=== PATIENT | female | born 1960 | race Caucasian/White ===

== ENCOUNTER 2016-09-09 07:36 | Day surgery (SDC) | payer OTHER, BC ==
[~2016-09-09] VITALS: Ht 152.4 cm; Wt 47.0 kg
[~2016-09-09 07:36] MED LIST: CALC667C4 PO; CEFAZOLIN 1000MG/55 ML D5W IV SCH; D5W AND 1/4NSS 1,000 ML IV SCH; DORZ1SOL6 OPB; INSPMPNVLG; LEVO200T6 PO; METO25TA3 PO; OXYC-57 PO; PATIENT'S ALLERGY INFO NEEDS ENTERED SCH; PATIENT'S HEIGHT AND/OR WEIGHT NEEDED SCH; PRAV20TA PO; WARF1TAB6 PO
[2016-09-09 07:58] VITALS: BP 131/62; PULSE 71; TEMP 36.8; O2SAT 100; Ht 152.4 cm; Wt 47.0 kg
--- NOTE | 2016-09-09 08:07 | History and Physical ---
History & Physical Date of Service Sep 09, 2016. History & Physical End stage renal disease, malfunctioning fistula History of Present Illness The patient is a 55 year old female who had a right upper arm fistula created. The cephalic vein in the upper extremity did not mature and flow into the basilic does not appear adequate. She had a revision but still has poor flows. The patient has a history of coronary artery disease, hypertension and diabetes. Allergies Amiodarone (Verified Allergy, Severe, significant skin breakdown, 12/13/15) Home Medications Scheduled Carvedilol (Coreg), 12.5 MG PO BID Dorzolamide Hcl-Timolol Maleat (Cosopt Oph), 1 DROP OPB BID Hydralazine Hcl (Apresoline), 25 MG PO TID Insulin Aspart (novoLOG INSULIN PUMP ), 1 EA N/A UD Levothyroxine Sodium (Levothyroxine Sodium), 1 TAB PO QAM Levothyroxine Sodium (Levothyroxine Sodium), 1 TAB PO QAM Pravastatin Sodium (Pravastatin Sodium), 40 MG PO HS Warfarin Sod (Jantoven), 1 MG PO HS Problem List Medical Problems: (1) Cancer of right colon (2) Colorectal cancer, stage III (3) Coronary Atherosclerosis Of [place] Coronary Vessel (4) Diabetes (5) Hypertension Nos Surgical / Medical History Hx Cardiac Surgery: Yes (CARDIAC CATH- 1987/1999/2013-1 STENT) Hx Abdominal Surgery: Yes (BOWEL RESECTION) Hx Cancer Surgery: Yes (BOWEL RESECTION) Hx Thoracic Surgery: No Hx Orthopedic: No Hx Urinary Tract Surgery: Yes (L KIDNEY TRANSPLANT-1999) HX Other Surgery: Yes (A-PORT INSERTION RT CHEST, PERMACATH LEFT CHEST, THYROIDECTOMY, *) Family History No significant family history Social History Smoking Status: Never Smoker Hx Tobacco Use In Past Year?: No Hx Alcohol Use - Type & Amnt: No Hx Substance Use -Type & Amnt: No Review of Systems Constitutional: No chills, No diaphoresis, No fatigue, No fever, No malaise, No problem reported, No sweats, No weakness, No weight gain, No weight loss Respiratory: No STEWARD, No PND, No cough, No cyanosis, No dyspnea, No hemoptysis, No orthopnea, No problem reported, No short of breath, No sputum production, No stridor, No wheezing Cardiovascular: No chest pain, No chest pressure, No chest tightness, No cyanosis, No diaphoresis, No edema, No intermittent claudication, No lightheadedness, No mumur, No orthopnea, No palpitations, No paroxysmal nocturnal dyspnea, No problem reported, No syncope Gastrointestinal: No abdominal pain, No anorexia, No appetite changes, No belching, No constipation, No diarrhea, No dysphagia, No flatulence, No food intolerance, No heartburn, No hematemesis, No hematochezia, No hemorrhoids, No indigestion, No nausea, No problem reported, No rectal bleeding, No stool changes, No vomiting Genitourinary - Female: No breast problems, No dysmenorrhea, No dysuria, No hematuria, No hesitancy, No menorrhagia, No metrorrhagia, No , No problem reported, No rash, No urinary frequency, No urinary incontinence, No urinary retention, No urinary urgency, No vaginal bleeding, No vaginal discharge , No vaginal itching, No vulvadynia Musculoskeletal: No back pain, No gout, No joint pain, No joint swelling, No muscle pain, No muscle stiffness, No muscle weakness, No neck pain, No problem reported Neurologic: No LOC, No dizziness, No headache, No lethargy, No memory loss, No numbness, No paresthesia, No pre-existing deficit, No problem reported, No seizures, No tics, No tingling, No tremors, No vertigo, No weakness Psychiatric: No alcohol abuse, No anxiety, No auditory hallucinations, No depression, No drug abuse, No homicidal ideation, No mood changes, No problem reported, No suicidal ideation, No visual hallucinations Physical Exam Constitutional: General Apperance: cachectic Level of Distress: NAD Ambulation: ambulating normally Psychiatric: Mental Status: active & alert, normal mood, normal affect Orientation: oriented except where noted, to time, to place, to person Memory: recent memory normal, remote memory normal Neck: supple Lungs: Auscultation: breath sounds normal, CTA except as noted, no wheezing, no rales/crackles, no rhonchi Cardiovascular: Heart Auscultation: RRR Peripheral Pulses: Carotid Pulse: normal on the left, normal on the right Radial Pulse: normal on the left, normal on the right Femoral Pulse: normal on the left, normal on the right Abdomen: Inspection & Palpation: soft Musculoskeletal: normal, normal strength (5/5 throughout), normal tone Extremities: Upper Right: no cyanosis, no edema, no varicosities, no palpable cord, no clubbing, no ulcers, no mottling Upper Left: no cyanosis, no edema, no varicosities, no palpable cord, no clubbing, no ulcers, no mottling Lower Right: no cyanosis, no edema, no varicosities, no palpable cord, no clubbing, no ulcers, no mottling, small thrill in fistula Lower Left: no cyanosis, no edema, no varicosities, no palpable cord, no clubbing, no ulcers, no mottling Neurologic: Cranial Nerves: grossly intact Sensation: grossly intact Assessment and Plan Imp: End stage renal disease Malfunctioning of fistula Plan: Patient admitted for a fistulogram with possible intervention. I have discussed the risks options and benefits of the procedure with the patient. The patient understands the risks options and benefits and agrees to the procedure.
[2016-09-09 08:28] LABS: PARTIAL THROMBOPLASTIN RATIO 1.3; PROTHROMBIN TIME (PATIENT) 22.3 SECONDS (9.0-12.0)
[2016-09-09] MEDS ORDERED: MIDAZOLAM HCL 1 MG/ML 2ML VIAL ONE (10:49)
[2016-09-09] MEDS ORDERED: FENTANYL CITRATE INJ 50 MCG/1 ML 2 ML VIAL ONE (10:49)
--- NOTE | 2016-09-09 11:13 | Procedure Note ---
Pre-Mod Sedation Assessment General Date of Moderate Sedation: Sep 09, 2016. Vital Signs: Vital Signs Past 12 Hours Date Time Temp Pulse Resp B/P Pulse Ox O2 Delivery O2 Flow Rate FiO2 09/09/16 07:58 36.8 71 18 131/62 100 Room Air Pre-Sedation Airway Assessment Oral Cavity: WNL Smoking Status: Never Smoker Mallampati Classification: Class I ASA Classification: Class II Notes The planned sedation has been discussed with the patient and consent obtained. I have identified the patient, determined the appropriateness of sedation and have assessed the patient immediately prior to the procedure. All medicine(s) and interventions are by my order.
--- NOTE | 2016-09-09 11:13 | History & Physical Bridge Note ---
H&P Re-Evaluation Bridge Note: I have examined the patient, reviewed the History & Physical and in the interval since the performance of the History & Physical I have noted the following changes of clinical significance: No changes noted
[2016-09-09] MEDS ORDERED: LIDOCAINE HCL 1% 20 ML VIAL INJ ONE (11:30)
[2016-09-09] MEDS ORDERED: FENTANYL CITRATE INJ 50 MCG/1 ML 2 ML VIAL IV ONE (11:30)
[2016-09-09] MEDS ORDERED: OPTIRAY 300 IV ONE (11:44)
--- NOTE | 2016-09-09 11:47 | [facility] Post Operative Brief Note ---
Immediate Operative Summary Operative Date Sep 09, 2016. Pre-Operative Diagnosis malfunctioning fistula Post-Operative Diagnosis same Procedure(s) Performed Right Upper Extremity Fistulogram, Percutaneous Transluminal Angioplasty Peripheral Venous Surgeon Dr. Morales [facility] Crusher And Washer Surgeon(s) Dr. Edouard Estimated Blood Loss 3 ml Findings no residual stenosis Specimens none Anesthesia Local Complication(s) None Disposition
--- NOTE | 2016-09-09 11:48 | Discharge Instructions ---
Discharge Instructions Date of Service Sep 09, 2016. Visit Reason for Visit: End Stage Renal Disease -On Hemodialysis Discharge Discharge Diagnosis / Problem: Malfunctioning right arm fistula Discharge Goals Goal(s): Therapeutic intervention Activity Recommendations Activity Limitations: per Instructions/Follow-up section Anesthesia . Post Anesthesia Instructions: If you have had General Anesthesia or IV Sedation: * Do not drive today. * Resume driving when surgeon permits. * Do not make important decisions or sign legal documents today. * Call surgeon for: 1. Temperature elevations greater than 101 degrees F. 2. Uncontrollable pain. 3. Excessive bleeding. 4. Persistent nausea and vomiting. 5. Medication intolerance (nausea, vomiting or rash). * For nausea and vomiting use only clear liquids such as: tea, soda, bouillon until nausea subsides, then gradually increase diet as tolerated. * If you have any concerns or questions, call your surgeon's office. If physician is unavailable and it is an emergency, call 911 or go to the nearest emergency room. . Instructions / Follow-Up Instructions / Follow-Up Call [phone] with any questions or concerns. SPECIAL CARE INSTRUCTIONS: Medications: * Continue to take your medications as directed. If you have been given a prescription for Plavix, please fill it immediately and take as directed. Incision Care: * Your puncture site may have some bruising and minor swelling for about one week. * You will have a small dressing covering your puncture site. You may remove the dressing after 24 hours and shower. You may let the warm soapy water run over it, but be sure to dry the puncture site well and keep it dry. * DO NOT IMMERSE THE INCISION IN A TUB/POOL/etc. UNTIL HEALED. * Puncture sites should be kept covered with a band-aid until it begins to heal. Restrictions: * Depending on whether you leg or arm was punctured to access the arteries, you will be required to lay flat, hold your arm still, or both, for about 4 hours after the procedure to prevent bleeding. * Limit your activity for the first 48 hours. You may walk and go up and down steps. Avoid excessive bending or movement at the puncture site. Possible Complications: * Excessive Swelling - after blood flow is improved you may notice increased swelling in the lower legs. This is a normal response. This usually depends on the amount of blockages in the leg, how long they have been there prior to your procedure and how much blood flow was restored. Elevating your legs will help to improve this. Please notify our office ([phone] ) if the swelling does not go away after lying in bed overnight. * Infection/Drainage/Bleeding - Drainage or bleeding from the puncture site should be minimal. If you have excessive bleeding or drainage, call our office ([phone]) right away. * Pain - You may experience some mild pain or soreness at your puncture site. If your pain does not improve, please contact our office ([phone]). Call your doctor and seek emergent treatment if you develop: * Temperature above 101 degrees * Any fever or chills * Any redness or purulent drainage from the puncture site * Any new dusky/blue colored toes or feet with coolness or sharp or aching pain. SKIN IRRITATION: * You may experience some redness and/or swelling in the area where radiation was administered. If any skin irritation occurs, please contact your family physician. FOLLOW UP VISIT: Keep any scheduled doctor appointments. Diet Recommendations Recommended Home Diet: resume previous diet Procedures Procedures Performed: Right Upper Extremity Fistulogram, Percutaneous Transluminal Angioplasty Peripheral Venous Pending Studies Studies pending at discharge: no Medical Emergencies . Who to Call and When: Medical Emergencies: If at any time you feel your situation is an emergency, please call 911 immediately. . Non-Emergent Contact Non-Emergency issues call your: Surgeon . . "Provider Documentation" section prepared by Sarbjit Morales.
[2016-09-09 12:05] VITALS: BP 123/58; PULSE 68; TEMP 36.9; O2SAT 98
--- NOTE | 2016-09-09 12:22 | DIAGNOSTIC IMAGING REPORT ---
DATE OF PROCEDURE: 09/09/2016 PREOPERATIVE DIAGNOSIS: Malfunctioning right arm arteriovenous fistula. POSTOPERATIVE DIAGNOSIS: Same. PROCEDURE: Right upper extremity fistulogram and balloon angioplasty with a 6 mm balloon. SURGEON: Dr. Sarbjit Morales. THERAPEUTIC CONSULTANT: Dr. Orlin Edouard. ANESTHESIA: Local only. ESTIMATED BLOOD LOSS: 3 mL. INDICATIONS: This is a 56-year-old female with end-stage renal disease currently on dialysis. She previously underwent a right upper extremity brachiocephalic AV fistula. Unfortunately, this did not mature. Her cephalic vein occluded and she reconstituted basilic vein. Therefore, she recently underwent transition of her basilic vein onto her cephalic vein. She continues to have trouble dialyzing per the dialysis center. Fistulogram was indicated for ongoing malfunctioning of the AV fistula. PROCEDURE: The patient was brought to the endo procedure room and placed in supine position. A timeout was performed and all parties agreed to correct patient and procedure performed. The patient was placed in the supine position. Appropriate surgical antibiotics were administered within 1 hour of the incision. The fistula was accessed using a micropuncture needle. This was exchanged to a micropuncture sheath over a wire. Fistulogram was performed. This showed a moderate stenosis at what appeared to be the anastomosis between the cephalic and basilic vein. The rest of the veins including the central system all were widely patent. Of note, she has a port on the ipsilateral side and a tunneled dialysis catheter on the left side. We elected to treat this area of narrowing. The sheath was upsized to a 5-Italian sheath over a angled Glidewire. A 6 mm balloon was brought onto the field and the anastomosis was angioplastied. Angiogram at the completion of this showed good resolution of the stenosis. All sheath wires and catheters were removed. Pressure was held at the access site and hemostasis was achieved. The patient was transferred to recovery room in satisfactory condition. I was present and scurbbed for the entire procedure. [facility]
[2016-09-09 12:35] VITALS: BP 105/57; PULSE 65; O2SAT 98
[2016-12-30] MEDS ORDERED: OXYC-57 PO (11:15)
== END 2016-09-09 12:51 | disposition home or self-care (01) ==
LOC: C.ACU 07:36
PROVIDERS: ATTEND Surgery Vascular Surgery
DX: T82.858A Stenosis of other vascular prosthetic devices, implants and grafts, initial encounter (principal); Y83.2 Surgical operation with anastomosis, bypass or graft as the cause of abnormal reaction of the patient, or of later complication, without mention of misadventure at the time of the procedure; N18.6 End stage renal disease; R64 Cachexia; I12.0 Hypertensive chronic kidney disease with stage 5 chronic kidney disease or end stage renal disease; E11.9 Type 2 diabetes mellitus without complications; I25.10 Atherosclerotic heart disease of native coronary artery without angina pectoris; Z85.038 Personal history of other malignant neoplasm of large intestine; Z96.41 Presence of insulin pump (external) (internal)

== ENCOUNTER → 2016-11-25 | Day surgery (SDC) | payer OTHER, BC ==
[~2016-11-25] VITALS: Ht 152.4 cm; Wt 50.0 kg
[~2016-11-25] MED LIST changes: -CEFAZOLIN 1000MG/55 ML D5W IV SCH; -D5W AND 1/4NSS 1,000 ML IV SCH; +FENTANYL CITRATE INJ 50 MCG/1 ML 2 ML VIAL IV ONE; +FENTANYL CITRATE INJ 50 MCG/1 ML 2 ML VIAL ONE; +LIDOCAINE HCL 1% 20 ML VIAL INFIL ONE; +LIDOCAINE HCL 1% 20 ML VIAL ONE; +MIDAZOLAM HCL 1 MG/ML 2ML VIAL IV ONE; +MIDAZOLAM HCL 1 MG/ML 2ML VIAL ONE; +NURSING VERBAL MED ORDER ONE; -PATIENT'S ALLERGY INFO NEEDS ENTERED SCH; -PATIENT'S HEIGHT AND/OR WEIGHT NEEDED SCH; +SOD CHLOR IV SCH; +SODIUM CHLORIDE 0.45% 1000ML 1,000 ML IV SCH; +STERILE WATER IV SCH
[2016-11-25 06:48] VITALS: BP 143/64; PULSE 76; TEMP 36.8; O2SAT 100; Ht 152.4 cm; Wt 50.0 kg
[2016-11-25 07:21] LABS: INR 1.5 (0.9-1.1); PARTIAL THROMBOPLASTIN RATIO 1.2; PROTHROMBIN TIME (PATIENT) 16.7 SECONDS (9.0-12.0)
--- NOTE | 2016-11-25 08:00 | Procedure Note ---
Pre-Mod Sedation Assessment General Date of Moderate Sedation: November 25, 2016. Vital Signs: Vital Signs Past 12 Hours Date Time Temp Pulse Resp B/P Pulse Ox O2 Delivery O2 Flow Rate FiO2 11/25/16 06:48 36.8 76 18 143/64 100 Room Air Pre-Sedation Airway Assessment Oral Cavity: WNL Short Thick Neck: No Hx of Sleep Apnea: No Smoking Status: Never Smoker Mallampati Classification: Class I ASA Classification: Class II Notes The planned sedation has been discussed with the patient and consent obtained. I have identified the patient, determined the appropriateness of sedation and have assessed the patient immediately prior to the procedure. All medicine(s) and interventions are by my order.
--- NOTE | 2016-11-25 08:00 | History and Physical ---
History & Physical Date of Service November 25, 2016. History & Physical CC: End stage renal disease, functioning fistula History of Present Illness The patient is a 55 year old female who had a right upper arm fistula created. The cephalic vein in the upper extremity did not mature and flow into the basilic does not appear adequate. She had a revision. She now has a normal functioning fistula.. The patient has a history of coronary artery disease, hypertension and diabetes. Allergies Amiodarone (Verified Allergy, Severe, significant skin breakdown, 12/13/15) Home Medications Scheduled Carvedilol (Coreg), 12.5 MG PO BID Dorzolamide Hcl-Timolol Maleat (Cosopt Oph), 1 DROP OPB BID Hydralazine Hcl (Apresoline), 25 MG PO TID Insulin Aspart (novoLOG INSULIN PUMP ), 1 EA N/A UD Levothyroxine Sodium (Levothyroxine Sodium), 1 TAB PO QAM Levothyroxine Sodium (Levothyroxine Sodium), 1 TAB PO QAM Pravastatin Sodium (Pravastatin Sodium), 40 MG PO HS Warfarin Sod (Jantoven), 1 MG PO HS Problem List Medical Problems: (1) Cancer of right colon (2) Colorectal cancer, stage III (3) Coronary Atherosclerosis Of [place] Coronary Vessel (4) Diabetes (5) Hypertension Nos Surgical / Medical History Hx Cardiac Surgery: Yes (CARDIAC CATH- 1987/1999/2013-1 STENT) Hx Abdominal Surgery: Yes (BOWEL RESECTION) Hx Cancer Surgery: Yes (BOWEL RESECTION) Hx Thoracic Surgery: No Hx Orthopedic: No Hx Urinary Tract Surgery: Yes (L KIDNEY TRANSPLANT-1999) HX Other Surgery: Yes (A-PORT INSERTION RT CHEST, PERMACATH LEFT CHEST, THYROIDECTOMY, *) Family History No significant family history Social History Smoking Status: Never Smoker Hx Tobacco Use In Past Year?: No Hx Alcohol Use - Type & Amnt: No Hx Substance Use -Type & Amnt: No Review of Systems Constitutional: No chills, No diaphoresis, No fatigue, No fever, No malaise, No problem reported, No sweats, No weakness, No weight gain, No weight loss Respiratory: No STEWARD, No PND, No cough, No cyanosis, No dyspnea, No hemoptysis, No orthopnea, No problem reported, No short of breath, No sputum production, No stridor, No wheezing Cardiovascular: No chest pain, No chest pressure, No chest tightness, No cyanosis, No diaphoresis, No edema, No intermittent claudication, No lightheadedness, No mumur, No orthopnea, No palpitations, No paroxysmal nocturnal dyspnea, No problem reported, No syncope Gastrointestinal: No abdominal pain, No anorexia, No appetite changes, No belching, No constipation, No diarrhea, No dysphagia, No flatulence, No food intolerance, No heartburn, No hematemesis, No hematochezia, No hemorrhoids, No indigestion, No nausea, No problem reported, No rectal bleeding, No stool changes, No vomiting Genitourinary - Female: No breast problems, No dysmenorrhea, No dysuria, No hematuria, No hesitancy, No menorrhagia, No metrorrhagia, No , No problem reported, No rash, No urinary frequency, No urinary incontinence, No urinary retention, No urinary urgency, No vaginal bleeding, No vaginal discharge , No vaginal itching, No vulvadynia Musculoskeletal: No back pain, No gout, No joint pain, No joint swelling, No muscle pain, No muscle stiffness, No muscle weakness, No neck pain, No problem reported Neurologic: No LOC, No dizziness, No headache, No lethargy, No memory loss, No numbness, No paresthesia, No pre-existing deficit, No problem reported, No seizures, No tics, No tingling, No tremors, No vertigo, No weakness Psychiatric: No alcohol abuse, No anxiety, No auditory hallucinations, No depression, No drug abuse, No homicidal ideation, No mood changes, No problem reported, No suicidal ideation, No visual hallucinations Physical Exam Constitutional: General Apperance: cachectic Level of Distress: NAD Ambulation: ambulating normally Psychiatric: Mental Status: active & alert, normal mood, normal affect Orientation: oriented except where noted, to time, to place, to person Memory: recent memory normal, remote memory normal Neck: supple Lungs: Auscultation: breath sounds normal, CTA except as noted, no wheezing, no rales/crackles, no rhonchi Cardiovascular: Heart Auscultation: RRR Peripheral Pulses: Carotid Pulse: normal on the left, normal on the right Radial Pulse: normal on the left, normal on the right Femoral Pulse: normal on the left, normal on the right Abdomen: Inspection & Palpation: soft Musculoskeletal: normal, normal strength (5/5 throughout), normal tone Extremities: Upper Right: no cyanosis, no edema, no varicosities, no palpable cord, no clubbing, no ulcers, no mottling Upper Left: no cyanosis, no edema, no varicosities, no palpable cord, no clubbing, no ulcers, no mottling Lower Right: no cyanosis, no edema, no varicosities, no palpable cord, no clubbing, no ulcers, no mottling, thrill in fistula Lower Left: no cyanosis, no edema, no varicosities, no palpable cord, no clubbing, no ulcers, no mottling Neurologic: Cranial Nerves: grossly intact Sensation: grossly intact Assessment and Plan Imp: End stage renal disease Functioning of fistula Plan: Patient admitted for removal of her permcath. I have discussed the risks options and benefits of the procedure with the patient. The patient understands the risks options and benefits and agrees to the procedure.
--- NOTE | 2016-11-25 08:50 | [facility] Post Operative Brief Note ---
Immediate Operative Summary Operative Date November 25, 2016. Pre-Operative Diagnosis End stage renal disease Functioning of fistula Post-Operative Diagnosis Same Procedure(s) Performed Perm Cath Removal Moderate Sedation ([id number]) Surgeon Andrew Cementer Helper Surgeon(s) None Estimated Blood Loss 3 Findings catheter and cuff removed Specimens a; Perm Cath Anesthesia Local with conscious sedation Complication(s) None Disposition
--- NOTE | 2016-11-25 08:52 | Discharge Instructions ---
Discharge Instructions Date of Service November 25, 2016. Visit Reason for Visit: End Stage Renal Disease, Functioning Fistula Discharge Discharge Diagnosis / Problem: Functioniong fistula Discharge Goals Goal(s): Therapeutic intervention Activity Recommendations Activity Limitations: resume your previous activity Anesthesia . Post Anesthesia Instructions: If you have had General Anesthesia or IV Sedation: * Do not drive today. * Resume driving when surgeon permits. * Do not make important decisions or sign legal documents today. * Call surgeon for: 1. Temperature elevations greater than 101 degrees F. 2. Uncontrollable pain. 3. Excessive bleeding. 4. Persistent nausea and vomiting. 5. Medication intolerance (nausea, vomiting or rash). * For nausea and vomiting use only clear liquids such as: tea, soda, bouillon until nausea subsides, then gradually increase diet as tolerated. * If you have any concerns or questions, call your surgeon's office. If physician is unavailable and it is an emergency, call 911 or go to the nearest emergency room. . Instructions / Follow-Up Instructions / Follow-Up Call [phone] with any questions or concerns. SPECIAL CARE INSTRUCTIONS: Medications: * Continue to take your medications as directed. If you have been given a prescription for Plavix, please fill it immediately and take as directed. Incision Care: * Your puncture site may have some bruising and minor swelling for about one week. * You will have a small dressing covering your puncture site. You may remove the dressing after 24 hours and shower. You may let the warm soapy water run over it, but be sure to dry the puncture site well and keep it dry. * DO NOT IMMERSE THE INCISION IN A TUB/POOL/etc. UNTIL HEALED. * Puncture sites should be kept covered with a band-aid until it begins to heal. Restrictions: * Depending on whether you leg or arm was punctured to access the arteries, you will be required to lay flat, hold your arm still, or both, for about 4 hours after the procedure to prevent bleeding. * Limit your activity for the first 48 hours. You may walk and go up and down steps. Avoid excessive bending or movement at the puncture site. Possible Complications: * Excessive Swelling - after blood flow is improved you may notice increased swelling in the lower legs. This is a normal response. This usually depends on the amount of blockages in the leg, how long they have been there prior to your procedure and how much blood flow was restored. Elevating your legs will help to improve this. Please notify our office ([phone] ) if the swelling does not go away after lying in bed overnight. * Infection/Drainage/Bleeding - Drainage or bleeding from the puncture site should be minimal. If you have excessive bleeding or drainage, call our office ([phone]) right away. * Pain - You may experience some mild pain or soreness at your puncture site. If your pain does not improve, please contact our office ([phone]). Call your doctor and seek emergent treatment if you develop: * Temperature above 101 degrees * Any fever or chills * Any redness or purulent drainage from the puncture site * Any new dusky/blue colored toes or feet with coolness or sharp or aching pain. SKIN IRRITATION: * You may experience some redness and/or swelling in the area where radiation was administered. If any skin irritation occurs, please contact your family physician. FOLLOW UP VISIT: Keep any scheduled doctor appointments. Diet Recommendations Recommended Home Diet: resume previous diet Procedures Procedures Performed: Perm Cath Removal Moderate Sedation ([id number]) Pending Studies Studies pending at discharge: no Medical Emergencies . Who to Call and When: Medical Emergencies: If at any time you feel your situation is an emergency, please call 911 immediately. . Non-Emergent Contact Non-Emergency issues call your: Surgeon . . "Provider Documentation" section prepared by Sarbjit Morales. .
--- NOTE | 2016-11-25 08:52 | Procedure Note ---
Post-Moderate Sedation Plan General Date of Moderate Sedation November 25, 2016. Vital Signs: Vital Signs Past 12 Hours Date Time Temp Pulse Resp B/P Pulse Ox O2 Delivery O2 Flow Rate FiO2 11/25/16 08:49 80 18 107/47 100 Room Air 11/25/16 06:48 36.8 76 18 143/64 100 Room Air Review - Discharge Plan Post Moderate Sedation Plan: On clinical assessment, the patient appears to have tolerated the conscious sedation without complications. Patient is recovering as anticipated. Patient will continue to be monitored by nursing and may be discharged when conscious sedation discharge criteria are met.
[2016-11-25 09:06] VITALS: BP 110/51; PULSE 84; TEMP 36.9; O2SAT 97
[2016-11-25 09:27] VITALS: BP 100/58; PULSE 82; TEMP 36.9; O2SAT 97
--- NOTE | 2016-12-22 12:39 | DIAGNOSTIC IMAGING REPORT ---
DATE OF PROCEDURE: 11/25/2016 DATE OF PROCEDURE: 11/25/2016. PREOPERATIVE DIAGNOSIS: Functioning arteriovenous fistula. POSTOPERATIVE DIAGNOSIS: Same. PROCEDURES: 1. Removal of PermCath. 2. Moderate conscious sedation. 14 minutes Surgeon: Alysia Morales MD Anesthestic: Local PROCEDURE INDICATIONS: The patient is a 56-year-old female who has a functioning fistula now in place. She has elected to remove the PermCath. It has been in for an extended period of time. The patient was taken to the angio suite and placed in supine position. After the left side of the neck, chest wall and PermCath were prepped and draped in a sterile manner, local anesthetic was administered. Using blunt and sharp dissection the catheter was freed up from the surrounding tissue. The sheath around the cuff was incised using the scalpel. Once this was done, the catheter slid out easily. Pressure was then applied to the puncture site in the neck. Once adequate hemostasis was obtained, a sterile dressing was applied. The patient left the angio suite in good condition and tolerated the procedure well. ZAYRA
== END | disposition home or self-care (01) ==
LOC: C.ACU 06:29
PROVIDERS: ATTEND Surgery Vascular Surgery
DX: N18.6 End stage renal disease (principal); I25.10 Atherosclerotic heart disease of native coronary artery without angina pectoris; I10 Essential (primary) hypertension; E11.9 Type 2 diabetes mellitus without complications

== ENCOUNTER → 2016-12-30 | Day surgery (SDC) | payer OTHER, BC ==
[~2016-12-30] VITALS: Ht 152.4 cm; Wt 48.0 kg
[~2016-12-30] MED LIST changes: +BUPIVACAINE 0.5 % 5 MG/1 ML MPF 30ML VIAL ONE; +BUPIVACAINE/EPINEPHRINE 0.5% MPF 1:200,000 30 ML VIAL INFIL ONE; +BUPIVACAINE/EPINEPHRINE 0.5% MPF 1:200,000 30 ML VIAL ONE; +CEFAZOLIN 1000MG/55 ML D5W IV SCH; +D5W AND 1/4NSS 1,000 ML IV ONE; -LIDOCAINE HCL 1% 20 ML VIAL INFIL ONE; +LIDOCAINE HCL 1% 20 ML VIAL SQ ONE; -NURSING VERBAL MED ORDER ONE; -SOD CHLOR IV SCH; -SODIUM CHLORIDE 0.45% 1000ML 1,000 ML IV SCH; -STERILE WATER IV SCH
--- NOTE | 2016-12-30 06:07 | History and Physical ---
History & Physical Date of Service Dec 30, 2016. History & Physical History & Physical CC: End stage renal disease, malpositioned infusaport History of Present Illness The patient is a 55 year old female who had an infusaport placed in Jul. During an ablation last week it was noted that the tip has migrated into the right atrium. She is admitted for repositioning of the catheter. The patient has a history of coronary artery disease, hypertension and diabetes. Allergies Amiodarone (Verified Allergy, Severe, significant skin breakdown, 12/13/15) Home Medications Scheduled Carvedilol (Coreg), 12.5 MG PO BID Dorzolamide Hcl-Timolol Maleat (Cosopt Oph), 1 DROP OPB BID Hydralazine Hcl (Apresoline), 25 MG PO TID Insulin Aspart (novoLOG INSULIN PUMP ), 1 EA N/A UD Levothyroxine Sodium (Levothyroxine Sodium), 1 TAB PO QAM Levothyroxine Sodium (Levothyroxine Sodium), 1 TAB PO QAM Pravastatin Sodium (Pravastatin Sodium), 40 MG PO HS Warfarin Sod (Jantoven), 1 MG PO HS Problem List Medical Problems: (1) Cancer of right colon (2) Colorectal cancer, stage III (3) Coronary Atherosclerosis Of [place] Coronary Vessel (4) Diabetes (5) Hypertension Nos Surgical / Medical History Hx Cardiac Surgery: Yes (CARDIAC CATH- /2013-1 STENT) Hx Abdominal Surgery: Yes (BOWEL RESECTION) Hx Cancer Surgery: Yes (BOWEL RESECTION) Hx Thoracic Surgery: No Hx Orthopedic: No Hx Urinary Tract Surgery: Yes (L KIDNEY TRANSPLANT-1999) HX Other Surgery: Yes (A-PORT INSERTION RT CHEST, PERMACATH LEFT CHEST, THYROIDECTOMY, *) Family History No significant family history Social History Smoking Status: Never Smoker Hx Tobacco Use In Past Year?: No Hx Alcohol Use - Type & Amnt: No Hx Substance Use -Type & Amnt: No Review of Systems Constitutional: No chills, No diaphoresis, No fatigue, No fever, No malaise, No problem reported, No sweats, No weakness, No weight gain, No weight loss Respiratory: No STEWARD, No PND, No cough, No cyanosis, No dyspnea, No hemoptysis, No orthopnea, No problem reported, No short of breath, No sputum production, No stridor, No wheezing Cardiovascular: No chest pain, No chest pressure, No chest tightness, No cyanosis, No diaphoresis, No edema, No intermittent claudication, No lightheadedness, No mumur, No orthopnea, No palpitations, No paroxysmal nocturnal dyspnea, No problem reported, No syncope Gastrointestinal: No abdominal pain, No anorexia, No appetite changes, No belching, No constipation, No diarrhea, No dysphagia, No flatulence, No food intolerance, No heartburn, No hematemesis, No hematochezia, No hemorrhoids, No indigestion, No nausea, No problem reported, No rectal bleeding, No stool changes, No vomiting Genitourinary - Female: No breast problems, No dysmenorrhea, No dysuria, No hematuria, No hesitancy, No menorrhagia, No metrorrhagia, No , No problem reported, No rash, No urinary frequency, No urinary incontinence, No urinary retention, No urinary urgency, No vaginal bleeding, No vaginal discharge , No vaginal itching, No vulvadynia Musculoskeletal: No back pain, No gout, No joint pain, No joint swelling, No muscle pain, No muscle stiffness, No muscle weakness, No neck pain, No problem reported Neurologic: No LOC, No dizziness, No headache, No lethargy, No memory loss, No numbness, No paresthesia, No pre-existing deficit, No problem reported, No seizures, No tics, No tingling, No tremors, No vertigo, No weakness Psychiatric: No alcohol abuse, No anxiety, No auditory hallucinations, No depression, No drug abuse, No homicidal ideation, No mood changes, No problem reported, No suicidal ideation, No visual hallucinations Physical Exam Constitutional: General Apperance: cachectic Level of Distress: NAD Ambulation: ambulating normally Psychiatric: Mental Status: active & alert, normal mood, normal affect Orientation: oriented except where noted, to time, to place, to person Memory: recent memory normal, remote memory normal Neck: supple Lungs: Auscultation: breath sounds normal, CTA except as noted, no wheezing, no rales/crackles, no rhonchi Cardiovascular: Heart Auscultation: RRR Peripheral Pulses: Carotid Pulse: normal on the left, normal on the right Radial Pulse: normal on the left, normal on the right Femoral Pulse: normal on the left, normal on the right Abdomen: Inspection & Palpation: soft Musculoskeletal: normal, normal strength (5/5 throughout), normal tone Extremities: Upper Right: no cyanosis, no edema, no varicosities, no palpable cord, no clubbing, no ulcers, no mottling Upper Left: no cyanosis, no edema, no varicosities, no palpable cord, no clubbing, no ulcers, no mottling Lower Right: no cyanosis, no edema, no varicosities, no palpable cord, no clubbing, no ulcers, no mottling, good thrill in fistula Lower Left: no cyanosis, no edema, no varicosities, no palpable cord, no clubbing, no ulcers, no mottling Neurologic: Cranial Nerves: grossly intact Sensation: grossly intact Assessment and Plan Imp: End stage renal disease Migration of infusaport catheter tip Plan: Patient admitted for repositioning of her infusaport catheter. I have discussed the risks options and benefits of the procedure with the patient. The patient understands the risks options and benefits and agrees to the procedure.
[2016-12-30 07:52] VITALS: BP 171/83; PULSE 75; TEMP 36.9; O2SAT 99; Ht 152.4 cm; Wt 48.0 kg
[2016-12-30 08:29] LABS: INR 2.8 (0.9-1.1); PARTIAL THROMBOPLASTIN RATIO 1.6; PROTHROMBIN TIME (PATIENT) 31.6 SECONDS (9.0-12.0)
[2016-12-30 08:39] VITALS: BP 171/83; PULSE 75; TEMP 36.9; O2SAT 99
--- NOTE | 2016-12-30 10:26 | Procedure Note ---
Pre-Mod Sedation Assessment General Date of Moderate Sedation: Dec 30, 2016. Vital Signs: Vital Signs Past 12 Hours Date Time Temp Pulse Resp B/P (MAP) Pulse Ox O2 Delivery O2 Flow Rate FiO2 12/30/16 08:39 36.9 75 16 171/83 99 Room Air 12/30/16 07:52 36.9 75 16 171/83 (112) 99 Room Air Pre-Sedation Airway Assessment Oral Cavity: WNL Short Thick Neck: No Hx of Sleep Apnea: No Smoking Status: Never Smoker Mallampati Classification: Class I ASA Classification: Class III Notes The planned sedation has been discussed with the patient and consent obtained. I have identified the patient, determined the appropriateness of sedation and have assessed the patient immediately prior to the procedure. All medicine(s) and interventions are by my order.
--- NOTE | 2016-12-30 11:18 | Discharge Instructions ---
Discharge Instructions Date of Service Dec 30, 2016. Visit Reason for Visit: Malpositioned Port/Catheter Discharge Discharge Diagnosis / Problem: Malpositioned infusaport catheter Discharge Goals Goal(s): Therapeutic intervention Activity Recommendations Activity Limitations: resume your previous activity Lifting Limitations: none Exercise/Sports Limitations: none Shower/Bathe: tomorrow Driving or Machine Use: no limitations Anesthesia . Post Anesthesia Instructions: If you have had General Anesthesia or IV Sedation: * Do not drive today. * Resume driving when surgeon permits. * Do not make important decisions or sign legal documents today. * Call surgeon for: 1. Temperature elevations greater than 101 degrees F. 2. Uncontrollable pain. 3. Excessive bleeding. 4. Persistent nausea and vomiting. 5. Medication intolerance (nausea, vomiting or rash). * For nausea and vomiting use only clear liquids such as: tea, soda, bouillon until nausea subsides, then gradually increase diet as tolerated. * If you have any concerns or questions, call your surgeon's office. If physician is unavailable and it is an emergency, call 911 or go to the nearest emergency room. . Diet Recommendations Recommended Home Diet: resume previous diet Procedures Procedures Performed: Repositioning of Infusaport Catheter, Fluoro for positioning Moderate Sedation from 1052 - 1120 Pending Studies Studies pending at discharge: no Medical Emergencies . Who to Call and When: Medical Emergencies: If at any time you feel your situation is an emergency, please call 911 immediately. . Non-Emergent Contact Non-Emergency issues call your: Surgeon . . "Provider Documentation" section prepared by Sarbjit Morales. .
--- NOTE | 2016-12-30 11:21 | Procedure Note ---
Post-Moderate Sedation Plan General Date of Moderate Sedation Dec 30, 2016. Vital Signs: Vital Signs Past 12 Hours Date Time Temp Pulse Resp B/P (MAP) Pulse Ox O2 Delivery O2 Flow Rate FiO2 12/30/16 08:39 36.9 75 16 171/83 99 Room Air 12/30/16 07:52 36.9 75 16 171/83 (112) 99 Room Air Review - Discharge Plan Post Moderate Sedation Plan: On clinical assessment, the patient appears to have tolerated the conscious sedation without complications. Patient is recovering as anticipated. Patient will continue to be monitored by nursing and may be discharged when conscious sedation discharge criteria are met.
--- NOTE | 2016-12-30 11:21 | [facility] Post Operative Brief Note ---
Immediate Operative Summary Operative Date Dec 30, 2016. Pre-Operative Diagnosis Malpositioned Aport Post-Operative Diagnosis Same Procedure(s) Performed Repositioning of Infusaport Catheter, Fluoro for positioning Moderate Sedation from 1052 - [address] Morales Dope Dry House Operator Surgeon(s) Dr. Jeffrey Estimated Blood Loss 2 Findings flushes easy, tip in distal SVC Specimens None Anesthesia Local with sedation Complication(s) None Disposition
[2016-12-30 11:30] VITALS: BP 137/59; PULSE 74; TEMP 37.4; O2SAT 95
[2016-12-30 12:00] VITALS: BP 145/65; PULSE 72; TEMP 36.7; O2SAT 97
--- NOTE | 2016-12-30 16:11 | [facility] Operative Report ---
Operative Report Operative Date Dec 30, 2016. Pre-Operative Diagnosis Malpositioned Aport Post-Operative Diagnosis Malpositioned Aport Procedure(s) Performed Repositioning of Aport, removal of 5 cm of catheter, conscious sedation -- 28 minutes, fluoroscopy for positioning. Surgeon Dr. Sarbjit Morales Automated Access Systems Technician Surgeon(s) Dr. Mell Jeffrey Estimated Blood Loss 2 Findings Catheter tip was initially in the right atrium. Repositioned in to the SVC. Specimens None Anesthesia Local with sedation Complication(s) None Disposition Recovery Room / PACU Indications Ms. Cristela Hurst is a 55 year old female who had an infusaport placed in Jul. During an ablation last week it was noted that the tip has migrated into the right atrium. She is admitted for repositioning of the catheter. The patient has a history of coronary artery disease, hypertension and diabetes. The risks, benefits, and alternatives were discussed with the patient and she consented to the procedure Description of Procedure The patient was taken to the [facility] OR and placed in the supine position. Her right neck and chest were prepped and draped in the usual sterile fashion. A safety time-out was performed and the patient, procedure, and sidedness was correctly identified. Local anesthesia was used to anesthetize the skin overlying the previous incision of her port. The skin was incised with a 15- blade scalpel. The subcutaneous tissues were divided with electrocautery. The port was identified and the fibrous sheath surrounding the port was incised. The prolene sutures holding the port to the chest wall were removed. The port was taken out of its subcutaneous pocket and disconnected from the catheter. The catheter was repositioned under fluoroscopy and withdrawn approximately 5 cm. The catheter was transected and the 5 cm excess was discarded. The catheter was reconnected to the port. The port was placed back into the subcutaneous pocket. Prolene sutures were placed on both sides of the port to secure it to the chest wall. Subcutanous tissues were reapproximated with 3-0 Vicryl in a running fashion. Skin was reapproximated with 4-0 Vicryl in a running subcuticular fashion. The port was accessed and flushed and aspirated easily. 5cc of heparin was instilled in the port. Dermabond skin glue was applied to the skin incision. The patient was transferred to the PACU in stable condition. There were no immediate complications and she tolerated the procedure well. Dr. Sarbjit Morlaes was present for the entire procedure. I, Dr. Morales was present and scrubed for the entire procedure. I attest to the content of the Intraoperative Record and any orders documented therein. Any exceptions are noted below.
== END | disposition home or self-care (01) ==
LOC: C.ACU 07:40
PROVIDERS: ATTEND Surgery Vascular Surgery
DX: T82.328A Displacement of other vascular grafts, initial encounter (principal); Y83.8 Other surgical procedures as the cause of abnormal reaction of the patient, or of later complication, without mention of misadventure at the time of the procedure; C19 Malignant neoplasm of rectosigmoid junction; N18.6 End stage renal disease; I25.10 Atherosclerotic heart disease of native coronary artery without angina pectoris; I10 Essential (primary) hypertension; E11.9 Type 2 diabetes mellitus without complications; Z79.899 Other long term (current) drug therapy; Z79.01 Long term (current) use of anticoagulants; Z79.4 Long term (current) use of insulin